=== PATIENT | female | born 1995 | race Caucasian/White ===

== ENCOUNTER 2019-10-20 18:59 | Emergency (ER) | payer OTHER ==
[~2019-10-20] VITALS: Ht 185.4 cm; Wt 95.1 kg
[2019-10-20 19:01] VITALS: BP 124/88
== END 2019-10-20 20:22 | disposition home or self-care (01) ==
LOC: EDBD 18:59 → M ED 18:59
DX: Z20.828 Contact with and (suspected) exposure to other viral communicable diseases (principal)
CPT/HCPCS: 99283; U0003